=== PATIENT | female | born 1940 | race Caucasian/White ===

== ENCOUNTER 2017-02-09 15:10 | Emergency (ER) | payer BC, OTHER ==
[~2017-02-09] VITALS: Ht 162.6 cm; Wt 80.5 kg
[2017-02-09 15:12] VITALS: Ht 162.6 cm; Wt 80.5 kg
--- NOTE | 2017-02-09 15:57 | ERD ---
ER Documentation Chief Complaint Chief Complaint left ankle pain bump in head s/p trip & fall going out of house, denies ko HPI 76-year-old female, presents to the emergency department with her son complaining of head trauma and left ankle pain after a mechanical fall that occurred this morning. According to the patient she tripped and fell over hitting her head without loss of consciousness. Denies blurred vision, nausea, vomiting, no numbness or tingling. Apparently during the fall she also twisted her left ankle, currently, the pain is sharp, 7/10, worsened by palpation and walking. Treatment attempted: Motrin with mild relief. History provided by patient. ROS SYSTEMIC symptoms: no fever, chills, no night sweats, no weight loss EYE symptoms: No blurred vision, no eye discharge OTOLARYNGEAL symptoms: No hearing loss. No ear pain, no sore throat CARDIOVASCULAR symptoms: No chest pain or discomfort, no palpitations. PULMONARY symptoms: No dyspnea, no cough, no wheezing. GASTROINTESTINAL symptoms: No abdominal pain, no nausea, no vomiting, no diarrhea MUSCULOSKELETAL symptoms: Per HPI NEUROLOGY symptoms: No confusion, no syncope, no numbness or tingling. SKIN: No rashes Medications Home Meds Active Scripts Hydrocodone/Acetaminophen (P[place]enix 5-325 Tablet) 1 Each Tablet, 1 TAB PO Q6H Y for PAIN, #12 TAB Prov:JACKELYN CAMPOS MD 02/09/17 Allergies Allergies: Coded Allergies: Sulfa (Sulfonamide Antibiotics) (Unverified Allergy, Unknown, swelling, hives, 02/09/17) ciprofloxacin (Unverified Allergy, Unknown, hives & swelling, 02/09/17) Physical Exam Vitals Vital Signs Date Time Temp Pulse Resp B/P Pulse Ox O2 Delivery O2 Flow Rate FiO2 02/09/17 15:12 97.3 94 18 143/90 98 Physical Exam Patient is in no acute distress, vital signs stable. Alert and fully oriented. EYES: PERRLA, EOMI, Sclera and conjunctiva appear normal. Head: 2 x 2 centimeter well-defined hematoma of the scalp, no crepitus. EARS: Canals clear, tympanic membranes WNL THROAT: Normal oropharynx. NECK: Supple, No lymphadenopathy. Full ROM without pain or tenderness. HEART: RRR, no rubs, murmurs, clicks or gallops. LUNGS: Clear to auscultation. ABDOMEN: Soft, non-tender without masses or hepatosplenomegaly. EXTREMITIES: Left ankle: Lateral malleolus with edema, tender to palpation, decreased range of motion for flexion and extension. Neurovascular exam intact BACK: Full ROM, no deformity, normal back exam NEURO: Cranial nerves grossly intact, no motor or sensory deficit Results 24 hrs [place] [id number] Radiology Main Line: [phone] DIAGNOSTIC IMAGING REPORT Patient: CATA BLACKWELL : 1940 Age: 76 Sex: F MR #: [id number] DOS: 02/09/17 2540 Ordering MD: JACKELYN CAMPOS MD Location: [facility] Room/Bed: PROCEDURE: XR Ankle. CLINICAL INDICATION: Pain TECHNIQUE: AP, oblique and lateral views of the right ankle were performed. COMPARISON: None. FINDINGS: There is normal mineralization and alignment. Small nondisplaced fracture of the distal tip of the lateral malleolus with associated soft tissue swelling. Vascular calcifications are present. Plantar calcaneal spur is present. The joints are normal. No soft tissue abnormality is present. IMPRESSION: Small nondisplaced fracture of the distal tip of the lateral mass malleolus with associated soft tissue swelling. RPTAT: QQ .Angy Rahman MD, Date Time Electronically viewed and signed by .Angy Rahman MD, on 02/09/2017 17:24 .M/ CC: JACKELYN CAMPOS MD [place] [id number] Radiology Main Line: [phone] DIAGNOSTIC IMAGING REPORT Patient: ACTA BLACKWELL : 1940 Age: 76 Sex: F MR #: [id number] DOS: 02/09/17 1827 Ordering MD: JACKELYN CAMPOS MD Location: [facility] Room/Bed: PROCEDURE: CT Brain without contrast. CLINICAL INDICATION: Fall. Head trauma. TECHNIQUE: A multiplanar CT of the brain was performed on a CT scanner utilizing axial imaging from the skull base through the vertex without IV contrast. The CTDIvol is 44.26 mGy and the DLP is 720.23 mGycm. One or more of the following dose reduction techniques were utilized: Automated exposure control, adjustment of the mA and/or kV according to patient size, use of iterative reconstruction technique. DICOM images are available. COMPARISON: None FINDINGS: No evidence of intracranial hemorrhage or abnormal extra-axial fluid collection. Moderate to large left parietal scalp hematoma without underlying calvarial fracture or parenchymal contusion. Minimal patchy hypo attenuation in the deep white matter compatible with minimal sequelae of chronic microvascular ischemic injury. The remaining brain parenchyma is normal attenuation morphology with preservation of bess white differentiation and age appropriate size of the ventricles and subarachnoid spaces. Atherosclerotic calcification of the cavernous internal carotid arteries. The basal cisterns, posterior fossa contents, brainstem, craniocervical junction , orbits, pituitary axis, paranasal sinuses, mastoid air cells, and calvarium are unremarkable. IMPRESSION: 1. No intracranial hemorrhage or abnormal extra-axial fluid collection. Moderate to large left parietal scalp hematoma without underlying calvarial fracture or parenchymal contusion. 2. Mild chronic microvascular ischemic change. 3. Atherosclerotic calcification of the cavernous internal carotid arteries. RPTAT:AAJJ Physician Solitario Date Time Electronically viewed and signed by Physician Solitario on 02/09/2017 16:41 [place]/ CC: JACKELYN CAMPOS MD Procedures/MDM 76 y/o female patient, presents to the ED c/o head trauma and left ankle pain after a mechanical fall this morning. Vital signs stable, Physical exam showed 3 cm scalp hematoma and left ankle swelling, tenderness and decreased range of motion. Differential diagnosis include but not limited to:head concussion, contusion, IC bleeding, fracture, ligamentous/tendon injury. Pertinent Data: Radiology: CT head: 1. No intracranial hemorrhage or abnormal extra-axial fluid collection. Moderate to large left parietal scalp hematoma without underlying calvarial fracture or parenchymal contusion. 2. Mild chronic microvascular ischemic change. 3. Atherosclerotic calcification of the cavernous internal carotid arteries. Left ankle XR: Small nondisplaced fracture of the distal tip of the lateral mass malleolus with associated soft tissue swelling. Physical examination and clinical presentation consistent most likely with left malleolar Fx and Head contusion. During the ED course the patient remained stable, no new complaints. Received treatment with left posterior splint. Results and clinical impression discussed with patient who agrees with management. The patient is stable to be treated outpatient and will be discharged home with a Rx for [place] prn pain half tablet at night. Side effects of prescribed opiates (drowsiness, habituation) were reviewed. The patient was instructed to follow up with the primary care provider in the next 48h. If symptoms persist, worsen or new symptoms develop, then patient should return to the ED immediately. Instructions explained and given to patient in Belgian with acknowledgment and demonstrated understanding. Disclaimer: Inadvertent spelling and grammatical errors are likely due to EHR/ dictation software use and do not reflect on the overall quality of patient care. Also, please note that the electronic time recorded on this note does not necessarily reflect the actual time of the patient encounter. Departure Diagnosis: Primary Impression: Head contusion Additional Impression: Malleolar fracture Condition: Stable Additional Instructions: Call your primary care doctor TOMORROW for an appointment during the next 1-2 days. See the doctor sooner or return here if your condition worsens before your appointment time. Thank you very much for allowing us to participate in your care. Your health and safety is our top priority at [facility]. Have prescriptions filled and follow precisely the directions on the label. Follow-up with primary care provider during the next 4 days and bring all the information and medications prescribed. If illness has not improved in 2 days, then make an appointment with primary care provider. If the provider is unavailable, return to the Emergency Department immediately. JACKELYN CAMPOS MD Feb 09, 2017 15:57
--- NOTE | 2017-02-09 16:41 | RADRPT ---
PROCEDURE: CT Brain without contrast. CLINICAL INDICATION: Fall. Head trauma. TECHNIQUE: A multiplanar CT of the brain was performed on a CT scanner utilizing axial imaging fro m the skull base through the vertex without IV contrast. The CTDIvol is 44.26 mGy and the DLP is 72 0.23 mGycm. One or more of the following dose reduction techniques were utilized: Automated exposu re control, adjustment of the mA and/or kV according to patient size, use of iterative reconstructio n technique. DICOM images are available. COMPARISON: None FINDINGS: No evidence of intracranial hemorrhage or abnormal extra-axial fluid collection. Moderate to large l eft parietal scalp hematoma without underlying calvarial fracture or parenchymal contusion. Minimal patchy hypo attenuation in the deep white matter compatible with minimal sequelae of chronic microva scular ischemic injury. The remaining brain parenchyma is normal attenuation morphology with preservation of bess white diff erentiation and age appropriate size of the ventricles and subarachnoid spaces. Atherosclerotic calc ification of the cavernous internal carotid arteries. The basal cisterns, posterior fossa contents, brainstem, craniocervical junction, orbits, pituitary axis, paranasal sinuses, mastoid air cells, and calvarium are unremarkable. IMPRESSION: 1. No intracranial hemorrhage or abnormal extra-axial fluid collection. Moderate to large left seun etal scalp hematoma without underlying calvarial fracture or parenchymal contusion. 2. Mild chronic microvascular ischemic change. 3. Atherosclerotic calcification of the cavernous internal carotid arteries. RPTAT:AAJJ Physician Solitario Date Time Electronically viewed and signed by Physician Solitario on 02/09/2017 16:41 [place]/
--- NOTE | 2017-02-09 17:25 | RADRPT ---
PROCEDURE: XR Ankle. CLINICAL INDICATION: Pain TECHNIQUE: AP, oblique and lateral views of the right ankle were performed. COMPARISON: None. FINDINGS: There is normal mineralization and alignment. Small nondisplaced fracture of the distal tip of the l ateral malleolus with associated soft tissue swelling. Vascular calcifications are present. Plantar calcaneal spur is present. The joints are normal. No soft tissue abnormality is present. IMPRESSION: Small nondisplaced fracture of the distal tip of the lateral mass malleolus with associated soft tis zo swelling. RPTAT: QQ .Angy Rahman MD, Date Time Electronically viewed and signed by .Angy Rahman MD, on 02/09/2017 17:24 .M/
[2017-02-09] MEDS ORDERED: HYDR-906 PO (17:53)
--- NOTE | 2017-02-09 18:50 | EN ---
Date/Time of Note Date/Time of Note DATE: 02/09/17 TIME: 18:47 ER Progress Note Splint evaluation: Type: Short leg posterior Location: Left lower extremity Position: good alignment in anatomical position Neurovascular intact The patient was told that elevating the injured part will help reduce pain and swelling. Ice packs can decrease pain and promote healing when applied in the first two days after an injury. The pack should be dry on the outside. Apply it for half an hour three to four times a day. If you have an elastic bandage or sling, remove it for bathing, sleep and when the injury is significantly improved. Rewrap the bandage if it feels too loose or too tight. JACKELYN CAMPOS MD Feb 09, 2017 18:50
== END 2017-02-09 18:04 | disposition home or self-care (01) ==
LOC: FTE 15:10
DX: S00.93XA Contusion of unspecified part of head, initial encounter (principal); S82.65XA Nondisplaced fracture of lateral malleolus of left fibula, initial encounter for closed fracture; R51 Headache; W01.0XXA Fall on same level from slipping, tripping and stumbling without subsequent striking against object, initial encounter; Y92.009 Unspecified place in unspecified non-institutional (private) residence as the place of occurrence of the external cause
CPT/HCPCS: 70450; 73610